=== PATIENT | male | born 1935 | race Caucasian/White ===

== ENCOUNTER → 2016-05-20 | Outpatient (REF) | payer MEDICARE ==
[~2016-05-20] MED LIST: /WARF3TA OR; /WARF5TA OR; ACET65TA OR; ALEN70TA39 PO; ALENDRONATE OR; AMLO5TAB OR; ASPI1TAB PO; ASPI81TA83 OR; ATEN25TA OR; ATEN25TA PO; ATOR40TA PO; COUM7.5T PO; FERR325T PO; FINA5TAB2 PO; GLIM1TAB OR; HYDR-727 OR; HYDR12.55 PO; INSUHUMDS SC; KEFL500C OR; KLOR10TA OR; LEVIMER SC; LISI40TA OR; LISI40TAB PO; MAG-TAB OR; MAGN30TA2 PO; MULTIVIT OR; OMEP20CA3 PO; PENTASA OR; POTA10CA PO; POTASSIUM OR; PRIL20CA OR; PROS5TAB OR; SIMV40TA2 OR; VITMTA PO; WARF-21 PO
[2016-05-20 21:06] LABS: EOSINOPHILS 5 % (0-5)
== END ==
LOC: M LAB REF 16:42
PROVIDERS: ATTEND Internal Medicine
DX: D59.9 Acquired hemolytic anemia, unspecified (principal)

== ENCOUNTER → 2016-07-30 | Outpatient (CLI) | payer MEDICARE ==
--- NOTE | 2016-07-30 12:17 | REP ---
Clinical: Sarcoidosis. Technique: PA and lateral. Comparison: 08/14/2015. Findings: Diffuse chronic fibrosis and reticulonodular interstitial disease (right greater than left) is compatible with history of sarcoidosis. Hilar adenopathy is also suggested and again consistent with sarcoidosis. Subtle superimposed acute infiltrate cannot be excluded. No effusion. No pneumothorax. Impression: Advanced chronic interstitial changes and fibrosis. Cannot exclude subtle superimposed process. Signed by Cory Li MD 07/30/2016 12:09 P
== END ==
LOC: M WUC 11:41
PROVIDERS: ATTEND Internal Medicine Pulmonary Disease
DX: D86.0 Sarcoidosis of lung (principal)

== ENCOUNTER → 2016-09-04 | Outpatient (REF) | payer MEDICARE ==
[2016-09-04 19:36] LABS: EOSINOPHILS 11 % (0-5)
== END ==
LOC: M LAB REF 16:47
PROVIDERS: ATTEND Internal Medicine
DX: D72.9 Disorder of white blood cells, unspecified (principal)

== ENCOUNTER 2016-11-06 19:13 | Emergency (ER) | payer MEDICARE ==
[~2016-11-06] VITALS: Ht 180.3 cm; Wt 68.2 kg
[~2016-11-06 19:13] MED LIST changes: -LASI20TA PO; -PRED20TA PO
[2016-11-06 22:09] LABS: BASO % 0.4 % (0.0-1.0); EOS # 0.4 K/mm3 (0.0-0.50); EOS % 4.8 % (0.0-3.0); LARGE UNSTAINED CELL # 0.1 K/mm3 (0.0-0.4); LARGE UNSTAINED CELL % 1.6 % (0.0-4.0); LYMPH # 0.8 K/mm3 (1.5-4.5); LYMPH % 7.6 % (24.0-44.0); MEAN CORPUSCULAR HEMOGLOBIN 29.1 pg (27.0-33.0); MEAN CORPUSCULAR HGB CONC 32.7 g/dl (32.0-36.5); MEAN CORPUSCULAR VOLUME 89.1 fl (80.0-96.0); MONO # 0.5 K/mm3 (0.0-0.8); MONO % 6.3 % (0.0-5.0); NEUTROPHILS # 6.7 K/mm3 (1.8-7.7); NEUTROPHILS % 79.2 % (36.0-66.0); PLATELET COUNT, AUTOMATED 183 k/mm3 (150-450); RED CELL DISTRIBUTION WIDTH 15.2 % (11.5-14.5); WHITE BLOOD COUNT 8.5 K/mm3 (4.0-10.0)
[2016-11-06 22:40] LABS: ALBUMIN 3.7 GM/DL (3.2-5.2); ALBUMIN/GLOBULIN RATIO 0.76 (1.00-1.93); ALKALINE PHOSPHATASE 152 U/L (45-117); ALT/SGPT 27 U/L (12-78); ANION GAP 7 MEQ/L (8-16); AST/SGOT 28 U/L (15-37); BILIRUBIN,DIRECT 0.2 MG/DL (0.0-0.2); BILIRUBIN,TOTAL 0.6 MG/DL (0.2-1.0); BLOOD UREA NITROGEN 18 MG/DL (7-18); CALCIUM LEVEL 9.3 MG/DL (8.8-10.2); CARBON DIOXIDE LEVEL 31 MEQ/L (21-32); CHLORIDE LEVEL 103 MEQ/L (98-107); CREATININE FOR GFR 1.21 MG/DL (0.70-1.30); GLOMERULAR FILTRATION RATE > 60.0 (>35); GLUCOSE, FASTING 82 MG/DL (83-110); POTASSIUM SERUM 4.3 MEQ/L (3.5-5.1); SODIUM LEVEL 141 MEQ/L (136-145); TOTAL PROTEIN 8.6 GM/DL (6.4-8.2)
[2016-11-06] MEDS ORDERED: FUROSEMIDE 40 MG TAB PO ONE (23:00)
[2016-11-06] MEDS ORDERED: LASI20TA PO (23:33)
[2016-11-07 00:05] VITALS: BP 170/70
--- NOTE | 2016-11-07 10:41 | ECGEPIP ---
Stationary ECG Study [facility] - ED Test Date: 2016-11-06 Pat Name: GRICELDA SINGH Department: Room: - Gender: M [employer]: ma : 1935 Requested By: LEIF PITTS PA-C Order Number: [id number] Reading MD: Thalia Goff Measurements Intervals [place] Rate: 62 P: 38 CA: 171 QRS: -53 QRSD: 170 T: -20 QT: 472 QTc: 483 Interpretive Statements SINUS RHYTHM RIGHT BUNDLE BRANCH BLOCK, NEW 08/14/15, CLINICAL CORRELATION LEFT ANTERIOR FASCICULAR BLOCK POSSIBLE LEFT VENTRICULAR HYPERTROPHY Electronically Signed On 11-07-2016 10:40:52 EDT by Thalia Goff
--- NOTE | 2016-11-07 10:51 | REP ---
Chest x-ray: Two views. History: Chest pain. Comparison study: July 30, 2016. Findings: There is severe bilateral somewhat asymmetric interstitial pulmonary fibrosis pattern right greater than left unchanged from the comparison study. The heart is not enlarged. Pleural angles are sharp. The aorta is tortuous. There is a levoconvex thoracic curve. There are clips in right upper quadrant of the abdomen. There is right hilar fullness unchanged. Impression: Severe diffuse interstitial fibrosis pattern. Findings unchanged. Signed by Rolf Collins MD 11/07/2016 08:36 A
== END 2016-11-07 00:05 | disposition home or self-care (01) ==
LOC: M ED 19:13
DX: R60.0 Localized edema (principal); I45.10 Unspecified right bundle-branch block; R13.10 Dysphagia, unspecified; R06.02 Shortness of breath; E11.9 Type 2 diabetes mellitus without complications; I10 Essential (primary) hypertension; N40.0 Benign prostatic hyperplasia without lower urinary tract symptoms; D64.9 Anemia, unspecified; D86.9 Sarcoidosis, unspecified; K50.90 Crohn's disease, unspecified, without complications; H40.9 Unspecified glaucoma; Z79.899 Other long term (current) drug therapy; Z79.82 Long term (current) use of aspirin; Z79.4 Long term (current) use of insulin; Z88.0 Allergy status to penicillin

== ENCOUNTER → 2016-11-06 | Outpatient (CLI) | payer MEDICARE ==
[~2016-11-06] MED LIST changes: -ATOR40TA PO; +ATOR40TA75 PO; +FERR1TAB8 PO; -FERR325T PO; +LASI20TA PO; +PRED20TA PO
--- NOTE | 2016-11-06 18:33 | REP ---
Soft-tissue neck x-ray: Three views. History: Dysphasia. Findings: Incidental note is made of advanced interstitial pulmonary fibrosis in the lungs particularly on the right compared to the left. This is unchanged from prior chest x-ray of July 30, 2016. There are surgical clips in the soft tissues of the neck on the left. Epiglottis and aryepiglottic folds are normal. Glottic and subglottic airway is unremarkable. Retropharyngeal soft tissues are not widened. Nasopharynx and hypopharynx are clear. There is degenerative disc narrowing at C4-5 and C5-6 with anterior spurring. Impression: Degenerative spondylosis changes in the cervical spine. Surgical clips in the soft tissues of the left neck. No other significant neck abnormality. Advanced interstitial fibrosis noted in the lungs. Signed by Rolf Collins MD 11/07/2016 08:33 A
[2016-11-06 19:30] LABS: ANION GAP 6 MEQ/L (8-16); BLOOD UREA NITROGEN 18 MG/DL (7-18); CALCIUM LEVEL 9.1 MG/DL (8.8-10.2); CARBON DIOXIDE LEVEL 31 MEQ/L (21-32); CHLORIDE LEVEL 102 MEQ/L (98-107); CREATININE FOR GFR 1.23 MG/DL (0.70-1.30); GLOMERULAR FILTRATION RATE > 60.0 (>35); GLUCOSE, FASTING 151 MG/DL (83-110); SODIUM LEVEL 139 MEQ/L (136-145)
[2016-11-06 19:40] LABS: BASO % 0.4 % (0.0-1.0); EOS # 0.4 K/mm3 (0.0-0.50); EOS % 5.2 % (0.0-3.0); LARGE UNSTAINED CELL # 0.1 K/mm3 (0.0-0.4); LARGE UNSTAINED CELL % 1.7 % (0.0-4.0); LYMPH # 0.8 K/mm3 (1.5-4.5); LYMPH % 8.5 % (24.0-44.0); MEAN CORPUSCULAR HEMOGLOBIN 29.8 pg (27.0-33.0); MEAN CORPUSCULAR HGB CONC 33.1 g/dl (32.0-36.5); MONO # 0.5 K/mm3 (0.0-0.8); MONO % 5.5 % (0.0-5.0); NEUTROPHILS # 6.5 K/mm3 (1.8-7.7); NEUTROPHILS % 78.7 % (36.0-66.0); PLATELET COUNT, AUTOMATED 202 k/mm3 (150-450); RED CELL DISTRIBUTION WIDTH 15.1 % (11.5-14.5); WHITE BLOOD COUNT 8.3 K/mm3 (4.0-10.0)
[2016-11-06 20:08] LABS: ERYTHROCYTE SEDIMENTATION RATE 5 mm/hr (0-20)
[2016-11-09 08:06] LABS: IgG P18 AB Absent (.); IgG P23 AB Absent (.); IgG P28 AB Absent (.); IgG P30 AB Present (.); IgG P41 AB Absent (.); IgG P45 AB Present (.); IgG P58 AB Absent (.); IgG P66 AB Absent (.); IgG P93 AB Absent (.); IgM P39 AB Absent (.); IgM P41 AB Absent (.)
== END ==
LOC: M WUC 17:24
PROVIDERS: ATTEND Physician Assistant
DX: M47.892 Other spondylosis, cervical region (principal); M79.641 Pain in right hand; M79.642 Pain in left hand; R13.10 Dysphagia, unspecified

== ENCOUNTER 2016-12-25 23:22 | Emergency (ER) | payer MEDICARE ==
[~2016-12-25] VITALS: Ht 177.8 cm; Wt 68.2 kg
[~2016-12-25 23:22] MED LIST changes: -PRED20TA PO
[2016-12-26] MEDS ORDERED: IPRATROPIUM 0.5MG/ALBUTEROL 2.5MG INH SOL UD 3ML (DUONEB)(J7620) NEB ONE (00:15)
[2016-12-26] MEDS ORDERED: dexameTHASONE 20 MG/5 ML VIAL (J1100) IV ONE (00:15)
[2016-12-26 00:44] LABS: BASO % 0.3 % (0.0-1.0); EOS # 0.4 10^3/uL (0.0-0.50); EOS % 4.1 % (0.0-3.0); IMMATURE GRANULOCYTE % 0.3 % (0-0); LYMPH # 0.6 10^3/uL (1.5-4.5); MEAN CORPUSCULAR HEMOGLOBIN 29.2 pg (27.0-33.0); MEAN CORPUSCULAR HGB CONC 32.6 g/dl (32.0-36.5); MEAN CORPUSCULAR VOLUME 89.8 fl (80.0-96.0); MONO # 0.7 10^3/uL (0.0-0.8); NEUTROPHILS # 7.6 10^3/uL (1.8-7.7); NEUTROPHILS % 81.3 % (36.0-66.0); PLATELET COUNT, AUTOMATED 183 10^3/uL (150-450); RED CELL DISTRIBUTION WIDTH 14.6 % (11.5-14.5); WHITE BLOOD COUNT 9.3 10^3/uL (4.0-10.0)
[2016-12-26 00:49] LABS: CREATININE FOR GFR 1.51 MG/DL (0.70-1.30); GLOMERULAR FILTRATION RATE 47.5 (>35); POTASSIUM SERUM 3.2 MEQ/L (3.5-5.1)
[2016-12-26] MEDS ORDERED: PRED20TA PO (02:36)
[2016-12-26 02:41] VITALS: BP 154/72
--- NOTE | 2016-12-26 08:53 | REP ---
Chest x-ray: Two views. History: Dyspnea. Comparison chest x-ray December 25, 2016. Findings: There is severe diffuse interstitial fibrosis pattern with reticulonodular densities throughout the lower lobes and in the right upper lobe region. These findings are unchanged from the previous day's study. No new focal infiltrate is seen. No pleural effusion is seen. Heart is not enlarged. The aorta is tortuous and somewhat calcific as before. Impression: No acute changes. Advanced diffuse interstitial fibrosis. Signed by Rolf Collins MD 12/26/2016 02:38 P
== END 2016-12-26 02:42 | disposition home or self-care (01) ==
LOC: M ED 23:22
DX: J84.10 Pulmonary fibrosis, unspecified (principal); D86.9 Sarcoidosis, unspecified; I11.0 Hypertensive heart disease with heart failure; E78.5 Hyperlipidemia, unspecified; N28.9 Disorder of kidney and ureter, unspecified; K21.9 Gastro-esophageal reflux disease without esophagitis; I50.9 Heart failure, unspecified; X58.XXXA Exposure to other specified factors, initial encounter; Y92.9 Unspecified place or not applicable; Y93.9 Activity, unspecified; Y99.8 Other external cause status; Z86.73 Personal history of transient ischemic attack (TIA), and cerebral infarction without residual deficits; Z88.0 Allergy status to penicillin; Z99.81 Dependence on supplemental oxygen; Z79.82 Long term (current) use of aspirin; Z79.4 Long term (current) use of insulin; Z79.899 Other long term (current) drug therapy
CPT/HCPCS: 71020; 71101; 80048; 85025; 87040; 94640; 96374; 99283; J1100

== ENCOUNTER → 2016-12-25 | Outpatient (CLI) | payer MEDICARE ==
[~2016-12-25] MED LIST changes: +LASI20TA PO; +PRED20TA PO
--- NOTE | 2016-12-25 16:59 | REP ---
Right ribs five views: There is no rib fracture or other rib abnormality. PA chest: There is no pneumothorax, hemothorax or pulmonary contusion. There is chronic advanced interstitial fibrosis bilaterally, unchanged from prior studies dating to at least 07/07/2012. Signed by Bautista Johnson MD 12/25/2016 04:50 P
== END ==
LOC: M WUC 16:27
PROVIDERS: ATTEND Physician Assistant
DX: S20.211A Contusion of right front wall of thorax, initial encounter (principal); J98.4 Other disorders of lung; X58.XXXA Exposure to other specified factors, initial encounter; Y92.9 Unspecified place or not applicable; Y93.9 Activity, unspecified; Y99.8 Other external cause status

== ENCOUNTER → 2017-01-30 | Outpatient (REF) | payer MEDICARE ==
[~2017-01-30] MED LIST changes: +PRED20TA PO
[2017-01-30 20:17] LABS: FOLATE > 24.0 NG/ML; VITAMIN B12 LEVEL 969 PG/ML
== END ==
LOC: M LAB REF 16:52
PROVIDERS: ATTEND Nurse Practitioner Family
DX: F01.50 Vascular dementia, unspecified severity, without behavioral disturbance, psychotic disturbance, mood disturbance, and anxiety (principal); G30.1 Alzheimer's disease with late onset

== ENCOUNTER 2017-03-10 22:19 | Emergency (ER) | payer MEDICARE ==
[2017-03-10] MEDS ORDERED: EPINEPHrine 1MG/10ML SYRINGE 1.5IN ×2 (22:20)
== END 2017-03-10 22:25 | disposition expired ==
LOC: M ED 22:25
DX: I46.9 Cardiac arrest, cause unspecified (principal)
CPT/HCPCS: 92950; 99285